=== PATIENT | female | born 1950 | race African-American/Black ===

== ENCOUNTER 2022-12-14 12:35 | Inpatient (IN) | payer OTHER ==
[~2022-12-14] VITALS: Ht 162.6 cm; Wt 87.1 kg
[2022-12-14] MEDS ORDERED: DEXTROSE 50% WATER 50ML SYRINGE IV ONE (13:45)
[2022-12-14] MEDS ORDERED: ONDANSETRON HCL 4MG/2ML INJ IV ONE (13:45)
[2022-12-14] MEDS ORDERED: SODIUM CHLORIDE 0.9% 1,000 ML IV ONE (13:45)
[2022-12-14 14:26] LABS: BASOPHILS % 1.2 % (0.0-2.0); EOSINOPHILS % 0.8 % (0.0-5.0); HEMATOCRIT. 28.1 % (36.0-48.0); HEMOGLOBIN. 9.2 g/dL (12.0-16.0); LYMPHOCYTES % 7.6 % (20.0-50.0); MEAN CORPUSCULAR HEMOGLOBIN 29.3 pg (28.0-32.0); MEAN CORPUSCULAR VOLUME 89.3 fL (81.0-99.0); NEUTROPHILS % 78.4 % (40.0-76.0); PLATELET 207 x1000/uL (130-400); RED BLOOD CELL COUNT 3.14 mill/uL (4.2-5.4); RED CELL DISTRIBUTION WIDTH 16.5 % (11.6-14.6)
[2022-12-14 14:29] LABS: CHLORIDE 109 mEq/L (98-107)
[2022-12-14] MEDS ORDERED: ENOXAPARIN 80MG/0.8ML SYR SUBCUT ONE (15:15)
[2022-12-14] MEDS ORDERED: ENOXAPARIN 80MG/0.8ML SYR SUBCUT SCH (16:45)
[2022-12-14] MEDS ORDERED: ONDANSETRON HCL 4MG/2ML INJ IV SCH (16:45)
[2022-12-14 18:20] VITALS: BP_SYST 154; BP_SYST 169; BP_DIAS 76; BP_DIAS 86; PULSE 76; PULSE 97; RESP 20; TEMP 98.1
[2022-12-14 20:00] VITALS: BP 173/98; PULSE 75; RESP 13; TEMP 97.8
[2022-12-14] MEDS ORDERED: ACETAMINOPHEN 650MG/20.3ML UDC PO PRN (20:30)
[2022-12-14] MEDS: METOPROLOL TARTRATE 50MG TABLET PO SCH (22:24)
[2022-12-14] MEDS: CIPROFLOXACIN 0.3% OPHTH SOLN 2.5ML LEFTEYE SCH (22:24)
[2022-12-14] MEDS: ATORVASTATIN CALCIUM 20MG TABLET PO SCH (22:25)
[2022-12-15] VITALS (11 sets, daily range): BP systolic 128–180; BP diastolic 63–96; PULSE 56–75; RESP 12–23; TEMP 97.8–98.6
[2022-12-15] MEDS ORDERED: VALS320T16 PO (06:02)
[2022-12-15] MEDS ORDERED: NIFE90TA2 MT (06:04)
[2022-12-15] MEDS ORDERED: NIFE-32 PO (06:06)
[2022-12-15] MEDS ORDERED: LABE200T9 PO (06:06)
[2022-12-15 06:17] LABS: CHLORIDE 110 mEq/L (98-107)
[2022-12-15 06:19] LABS: PROTHROMBIN TIME 10.5 sec (9.6-11.0)
[2022-12-15 06:25] LABS: HEMATOCRIT. 26.7 % (36.0-48.0); HEMOGLOBIN. 8.8 g/dL (12.0-16.0); MEAN CORPUSCULAR HEMOGLOBIN 29.7 pg (28.0-32.0); MEAN CORPUSCULAR VOLUME 90.4 fL (81.0-99.0); MEAN PLATELET VOLUME 8.2 fl (7.4-10.4); PLATELET 180 x1000/uL (130-400); RED BLOOD CELL COUNT 2.96 mill/uL (4.2-5.4); RED CELL DISTRIBUTION WIDTH 16.4 % (11.6-14.6)
[2022-12-15 06:32] LABS: HDL CHOLESTEROL 55 mg/dL (40-59); LDL CHOLESTEROL 100 mg/dL (5-100); T4 FREE 0.95 ng/dL (0.76-1.46)
[2022-12-15] MEDS: PANTOPRAZOLE 40MG DR TABLET PO SCH (06:40)
[2022-12-15] MEDS: CIPROFLOXACIN 0.3% OPHTH SOLN 2.5ML LEFTEYE SCH ×3 (06:40→21:15)
[2022-12-15] MEDS: ASPIRIN 81MG TABLET PO SCH (08:17)
[2022-12-15] MEDS: METOPROLOL TARTRATE 50MG TABLET PO SCH ×2 (08:18→21:00)
[2022-12-15] MEDS: AMLODIPINE 5MG TABLET PO SCH (12:23)
[2022-12-15 16:46] LABS: PLATELET ESTIMATE NORMAL
[2022-12-15] MEDS: ENOXAPARIN 80MG/0.8ML SYR SUBCUT SCH (17:12)
[2022-12-15] MEDS: CLONIDINE 0.1MG TABLET PO PRN ×2 (17:14→21:18)
[2022-12-15] MEDS ORDERED: REGADENOSON 0.4 MG/5 ML IV NR (19:15)
[2022-12-15] MEDS: ATORVASTATIN CALCIUM 20MG TABLET PO SCH (21:15)
[2022-12-16 04:00] VITALS: BP 130/55; PULSE 68; RESP 17; TEMP 97.3
[2022-12-16] MEDS: PANTOPRAZOLE 40MG DR TABLET PO SCH (06:21)
[2022-12-16] MEDS: CIPROFLOXACIN 0.3% OPHTH SOLN 2.5ML LEFTEYE SCH ×3 (06:21→21:10)
[2022-12-16 08:00] VITALS: BP 113/67; PULSE 76; RESP 17; TEMP 97.5
[2022-12-16] MEDS: ASPIRIN 81MG TABLET PO SCH (09:08)
[2022-12-16] MEDS: METOPROLOL TARTRATE 50MG TABLET PO SCH ×2 (09:08→21:11)
[2022-12-16] MEDS: AMLODIPINE 5MG TABLET PO SCH (09:09)
[2022-12-16] MEDS ORDERED: REGADENOSON 0.4 MG/5 ML IV ONE (10:46)
[2022-12-16] MEDS ORDERED: ONDANSETRON HCL 4MG/2ML INJ ONE (10:46)
[2022-12-16] MEDS ORDERED: ATROPINE SULFATE 1MG/10ML SYR ONE (10:49)
[2022-12-16 10:52] LABS: HEMATOCRIT. 28.3 % (36.0-48.0); HEMOGLOBIN. 9.1 g/dL (12.0-16.0); MEAN CORPUSCULAR HEMOGLOBIN 28.7 pg (28.0-32.0); MEAN CORPUSCULAR VOLUME 89.3 fL (81.0-99.0); MEAN PLATELET VOLUME 8.9 fl (7.4-10.4); PLATELET 182 x1000/uL (130-400); RED BLOOD CELL COUNT 3.16 mill/uL (4.2-5.4); RED CELL DISTRIBUTION WIDTH 16.3 % (11.6-14.6)
[2022-12-16 16:00] VITALS: BP 143/87; PULSE 67; RESP 17; TEMP 97.5
[2022-12-16] MEDS ORDERED: LOPERAMIDE HCL 2MG CAPSULE PO PRN (16:00)
[2022-12-16] MEDS: ENOXAPARIN 80MG/0.8ML SYR SUBCUT SCH (16:43)
[2022-12-16] MEDS: BACITRACIN 15GM TUBE TOP SCH (16:58)
[2022-12-16 20:01] VITALS: BP 118/84; PULSE 67; RESP 11; TEMP 97.9
[2022-12-16 20:19] LABS: PLATELET ESTIMATE NORMAL
[2022-12-16] MEDS: ATORVASTATIN CALCIUM 20MG TABLET PO SCH (21:10)
[2022-12-17] VITALS (7 sets, daily range): BP systolic 105–153; BP diastolic 54–76; PULSE 65–84; RESP 11–18; TEMP 98–98.4; O2SAT 98
[2022-12-17] MEDS: CIPROFLOXACIN 0.3% OPHTH SOLN 2.5ML LEFTEYE SCH ×2 (06:28→14:46)
[2022-12-17] MEDS: ASPIRIN 81MG TABLET PO SCH (08:55)
[2022-12-17] MEDS: AMLODIPINE 5MG TABLET PO SCH (08:55)
[2022-12-17] MEDS: METOPROLOL TARTRATE 50MG TABLET PO SCH (08:55)
[2022-12-17] MEDS: BACITRACIN 15GM TUBE TOP SCH (08:57)
[2022-12-17] MEDS ORDERED: FAMOTIDINE 20MG TABLET PO SCH (09:00)
[2022-12-17] MEDS ORDERED: SODIUM POLYSTYRENE SULFONATE 15 G/60 ML BOT PO SCH (11:30)
[2022-12-17] MEDS: ENOXAPARIN 80MG/0.8ML SYR SUBCUT SCH (18:07)
== END 2022-12-17 18:30 | DRG 280 ==
LOC: ER 12:35 → 3WST 16:09 → EDBEDREQTM 16:11 → EDBEDREQ 16:11 → EDBEDREQSVC 16:11
PROVIDERS: ADMIT Internal Medicine; ATTEND Internal Medicine
DX: I21.4 Non-ST elevation (NSTEMI) myocardial infarction (principal); E43 Unspecified severe protein-calorie malnutrition; G93.40 Encephalopathy, unspecified; N17.9 Acute kidney failure, unspecified; D64.9 Anemia, unspecified; E16.2 Hypoglycemia, unspecified; I10 Essential (primary) hypertension; E78.5 Hyperlipidemia, unspecified; Z68.33 Body mass index [BMI] 33.0-33.9, adult
CPT/HCPCS: 36415; 71045; 78452; 80048; 80053; 80061; 83880; 84439; 84443; 84484; 85025; 87493; 93005; 93017; 93306; 97162; 99291; A6261; A9500; C1893; J0461; J1650; J2405; J2785; J7030